=== PATIENT | male | born 1990 | race Caucasian/White ===

== ENCOUNTER 2018-01-20 00:36 | Emergency (ER) | payer OTHER ==
[2018-01-20 00:45] VITALS: BP 138/70; PULSE 96; RESP 16; TEMP 98.9
[2018-01-20] MEDS ORDERED: KETOROLAC 60 MG/2 ML VIAL IM STA (00:56)
--- NOTE | 2018-01-20 00:58 | ED ---
General Adult HPI - General Chief complaint: Back Pain/Injury Stated complaint: back pain Time Seen by Provider: 01/20/18 00:51 Source: patient, EMS, RN notes reviewed Mode of arrival: EMS Limitations: no limitations - History of Present Illness Initial comments: Patient 27-year-old male presenting to the emergency room today with a chief complaint of increased lower back pain over the past week. He denies any specific injury or trauma. Patient does admit that it's worse when he goes to sit up from a seated position. He states he feels in the middle lower back. Denies any lumbar radiculopathy. Denies any saddle anesthesia. Denies any bowel or bladder incontinence or retention. Patient states he is not taking any medication for this. Patient denies any other complaints symptoms. Patient denies any recent fever, chills, shortness of breath, chest pain, abdominal pain , nausea or vomiting, numbness or tingling, headaches or visual changes, or any other complaints. - Related Data Previous Rx's Medication Instructions Recorded Ibuprofen [Motrin] 800 mg PO Q6HR #30 tab 01/20/18 Allergies Allergy/AdvReac Type Severity Reaction Status Date / Time No Known Allergies Allergy Verified 01/20/18 00:45 Review of Systems ROS Statement: Those systems with pertinent positive or pertinent negative responses have been documented in the HPI. ROS Other: All systems not noted in ROS Statement are negative. Past Medical History Past Medical History: No Reported History History of Any Multi-Drug Resistant Organisms: None Reported Past Surgical History: No Surgical Hx Reported Past Psychological History: Bipolar Smoking Status: Current every day smoker Past Alcohol Use History: None Reported Past Drug Use History: Marijuana General Exam - General Exam Comments Initial Comments: General: The patient is awake and alert, in no distress, and does not appear acutely ill. Eye: Pupils are equal, round and reactive to light, extra-ocular movements are intact. No nystagmus. There is normal conjunctiva bilaterally. No signs of icterus. Ears, nose, mouth and throat: There are moist mucous membranes and no oral lesions. Neck: The neck is supple, there is no tenderness or JVD. Cardiovascular: There is a regular rate and rhythm. No murmur, rub or gallop is appreciated. Respiratory: Lungs are clear to auscultation, respirations are non-labored, breath sounds are equal. No wheezes, stridor, rales, or rhonchi Musculoskeletal: Normal ROM, no tenderness. Strength 5/5. Sensation intact. Pulses equal bilaterally 2+. Neurological: A&O x 3. CN II-XII intact, There are no obvious motor or sensory deficits. Coordination appears grossly intact. Speech is normal. Skin: Skin is warm and dry and no rashes or lesions are noted. Psychiatric: Cooperative, appropriate mood & affect, normal judgment. Limitations: no limitations Course Vital Signs 01/20/18 00:42 Temperature 98.9 F Pulse Rate 96 Respiratory 16 Rate Blood Pressure 138/70 O2 Sat by Pulse 94 L Oximetry Medical Decision Making - Medical Decision Making X-ray reviewed negative for any acute abnormality. Results were discussed with the patient. Patient will continue anti-inflammatories advised follow-up family doctor over the next 2 days for further evaluation and possible MRI symptoms persist. Advised return if any symptoms increase or worsen or for new concerns. Disposition Clinical Impression: Acute exacerbation of chronic low back pain Disposition: HOME SELF-CARE Condition: Good Instructions: Acute Low Back Pain (ED) Additional Instructions: Please use medication as discussed. Please follow-up with family doctor in the next 2 days of symptoms have not improved. Please return to emergency room if the symptoms increase or worsen or for any other concerns. Prescriptions: Ibuprofen [Motrin] 800 mg PO Q6HR #30 tab Is patient prescribed a controlled substance at d/c from ED?: No Referrals: Andres Beckett Jr, DO [Primary Care Provider] - 1-2 days Time of Disposition: 01:31
--- NOTE | 2018-01-20 01:26 | XR ---
EXAMINATION TYPE: XR lumbar spine 2 or 3V DATE OF EXAM: 01/20/2018 COMPARISON: NONE HISTORY: Low back pain TECHNIQUE: 3 views FINDINGS: Vertebra have normal spacing and alignment. Posterior elements are intact. Sacroiliac joint s appear normal. IMPRESSION: Normal lumbar spine exam.
== END 2018-01-20 01:41 | disposition home or self-care (01) ==
LOC: EC 00:36
DX: M54.5 Low back pain (principal); G89.29 Other chronic pain; F17.200 Nicotine dependence, unspecified, uncomplicated
CPT/HCPCS: 72100; 99283; 96372; J1885